=== PATIENT | female | born 1955 | race Hispanic/Latino ===

== ENCOUNTER 2020-01-26 12:31 | Emergency (ER) | payer OTHER ==
[~2020-01-26] VITALS: Ht 154.9 cm; Wt 108.9 kg
[~2020-01-26 12:31] MED LIST: AMARYL4 MG PO; ASPIR 8181 MG PO; GLUCOPHAGE850 MG PO; INVOKANA PO; MISC PO; VICTOZA 3-0.6 MG/0.1 SQ
--- NOTE | 2020-01-26 13:07 | NUR ---
US ETA 45 MINUTES
--- NOTE | 2020-01-26 14:55 | Diagnostic Imaging Report ---
EXAM: Right Upper Quadrant Ultrasound with Doppler INDICATION: Right upper quadrant pain. COMPARISON: The abdomen/pelvis. TECHNIQUE: Transverse and longitudinal images of the right upper abdomen were obtained. Grayscale, color Doppler and spectral waveform analysis of the hepatic vasculature and splenic vein were performed. FINDINGS: Liver: Size: 16.2 cm in the right midclavicular line, normal Appearance: Increased echogenicity, smooth contour. Mass: No focal masses Gallbladder: Stones/Sludge: None Wall: 0.6 cm, thickened. Appearance: No pericholecystic fluid or hydrops. Sonographic Dye's Sign: Positive Bile Ducts: Intrahepatic Ducts: No dilatation Extrahepatic Ducts: Common bile duct measures 0.3 cm, no dilatation Pancreas: Visualized portions of the pancreatic head, neck and proximal body are normal. Right Kidney: Size: 11.1 x 4.6 x 6.0 cm Echogenicity: Normal Parenchymal thickness: Normal Collecting system: No hydronephrosis Stones: None Cyst/Mass: None Vessels: Main Portal Vein: Diameter: 1.1 cm, normal. Normal flow direction. Aorta: Visualized portions are normal Inferior Vena Cava: Visualized portions are normal Free Fluid: No ascites or pleural effusion IMPRESSION: 1. Gallbladder wall thickening without evidence of gallstones or pericholecystic fluid. This consultation of findings can be seen with chronic acalculus cholecystitis. 2. Diffusely echogenic liver which may be due to body habitus and underpenetration rather than hepatic steatosis. Signed by: Stan Gonzalez MD on 01/26/2020 2:52 PM
--- NOTE | 2020-01-26 15:01 | Diagnostic Imaging Report ---
EXAM: CT Abdomen and Pelvis WITHOUT contrast INDICATION: Abdominal pain. COMPARISON: Same day ultrasound. TECHNIQUE: Abdomen and pelvis were scanned utilizing a multidetector helical scanner from the lung base to the pubic symphysis without administration of IV contrast. Absence of intravenous contrast decreases sensitivity for detection of focal lesions and vascular pathology. Coronal and sagittal reformations were obtained. Routine protocol was performed. IV CONTRAST: None ORAL CONTRAST: None COMPLICATIONS: None RADIATION DOSE: Total DLP: 1o09.44 mGy*cm Estimated effective dose: (DLP x 0.015 x size factor) mSv CTDIvol has been reviewed. It is below the limits set by the Radiation Protocol Committee (RPC). Dose modulation, iterative reconstruction, and/or weight based adjustment of the mA/kV was utilized to reduce the radiation dose to as low as reasonably achievable. FINDINGS: LINES and TUBES: None. LOWER THORAX: Unremarkable HEPATOBILIARY: No focal hepatic lesions. No biliary ductal dilation. GALLBLADDER: No radio-opaque stones or sludge. Gallbladder wall thickening described on same day ultrasound is not appreciated by CT. No pericholecystic fluid. SPLEEN: No splenomegaly. PANCREAS: No focal masses or ductal dilatation. ADRENALS: There is a 1.4 x 1.1 cm right adrenal adenoma. Left adrenal gland is normal. KIDNEYS/URETERS: There is bilateral nonspecific perinephric fat stranding. No hydronephrosis. No cystic or solid mass lesions. No stones. GI TRACT: No abnormal distention, wall thickening, or evidence of bowel obstruction. Appendix is normal. PELVIC ORGANS/BLADDER: Unremarkable. LYMPH NODES: No lymphadenopathy. VESSELS: There is a splenic artery aneurysm which measures 1.1 x 1.1 cm. The abdominal aorta and its major abdomen and pelvic branches have normal caliber otherwise. PERITONEUM / RETROPERITONEUM: No free air or fluid. BONES: There are degenerative changes in the spine. SOFT TISSUES: Unremarkable. IMPRESSION: 1. No acute abdominopelvic abnormality identified. 2. Gallbladder wall thickening described on same day ultrasound is not appreciated by CT. 3. Splenic artery aneurysm which measures 1.1 x 1.1 cm. 4. Right adrenal adenoma. Signed by: Stan Gonzalez MD on 01/26/2020 2:58 PM
--- NOTE | 2020-01-26 15:27 | Emergency Department Note ---
History of Present Illnes History of Present Illness Chief Complaint: Abdominal Complaints History of Present Illness This is a 64 year old female abdominal pain right upper quadrent . Onset (how long ago): day(s) (3) Location: right upper Quality: dull Radiation: Denies non-radiation, Denies back, Denies neck, Denies extremity, Denies abdomen, Denies periumbilical, Denies flank, Denies proximal, Denies distal, Denies other Severity: moderate Onset quality: gradual Duration (how long): day(s) (3) Timing of current episode: intermittent Progression: waxing and waning Context: Denies recent illness, Denies recent surgery, Denies recent immobilization, Denies recent travel, Denies trauma/injury, Denies new medications, Denies hx of DVT/PE, Denies non-compliance w/ medications, Denies other Relieving factors: none Exacerbating factors: none Associated symptoms: Denies denies other symptoms, Denies confusion, Denies chest pain, Denies cough, Denies diaphoresis, Denies fever/chills, Denies headaches, Denies loss of appetite, Denies malaise, Denies nausea/vomiting, Denies rash, Denies seizure, Denies shortness of breath, Denies syncope, Denies weakness, Denies other Treatments prior to arrival: none Past Medical/Family History Physician Review I have reviewed the patient's past medical and family history. Any updates have been documented here. Past Medical History Past Medical History: Diabetes Other Surgery: Social History Smoking Cessation: Never Smoker Alcohol Use: None Other Last Tetanus: UTD Review of Systems Review of Systems Constitutional: Reports no symptoms EENTM: Reports no symptoms Cardiovascular: Reports no symptoms Respiratory: Reports no symptoms Gastrointestinal: Reports as per HPI, Reports abdominal pain Genitourinary: Reports no symptoms Musculoskeletal: Reports no symptoms Integumentary: Reports no symptoms Neurological: Reports no symptoms Psychological: Reports no symptoms Endocrine: Reports no symptoms Hematological/Lymphatic: Reports no symptoms Physical Exam Related Data Allergies: Coded Allergies: clindamycin (Verified Allergy, Severe, RASH, 06/19/10) codeine (Verified Allergy, Severe, RASH, 06/19/10) Vital signs reviewed: Yes Physical Exam CONSTITUTIONAL Constitutional: Present well-developed, Present well-nourished HENT HENT: Present normocephalic, Present atraumatic, Present oropharynx clear/moist, Present nose normal HENT L/R: Present left ext ear normal, Present right ext ear normal EYES Eyes: Reports PERRL, Reports conjunctivae normal NECK Neck: Present ROM normal PULMONARY Pulmonary: Present effort normal, Present breath sounds normal CARDIOVASCULAR Cardiovascular: Present regular rhythm, Present heart sounds normal, Present capillary refill normal, Present normal rate GASTROINTESTINAL Abdominal: Present soft, Present bowel sounds normal, Present tender GENITOURINARY Genitourinary: Present exam deferred SKIN Skin: Present warm, Present dry MUSCULOSKELETAL Musculoskeletal: Present ROM normal NEUROLOGICAL Neurological: Present alert, Present oriented x 3, Present no gross motor or sensory deficits PSYCHOLOGICAL Psychological: Present mood/affect normal, Present judgement normal Results Laboratory Lab results reviewed: Yes Imaging Imaging results reviewed: Yes Assessment & Plan Medical Decision Making MDM gall stones, PUD Reassessment Reassessment BETTER Assessment & Plan Final Impression: (1) Abdominal pain, right upper quadrant (2) Gall bladder pain Depart Disposition: HOME, SELF-residential Meds Active Scripts [[Invokana] ] MISC No Conflict Check, 100 MG PO RDAILY Prov:MARJAN CHRISTIANSON MD 05/30/14 Reported Medications Metformin Hcl (GLUCOPHAGE) 850 Mg Tablet, 850 MG PO BID 12/18/13 Aspirin (ASPIR 81) 81 Mg Tablet.dr, 81 MG PO RDAILY 12/18/13 [Invokana] 100 MG TAB No Conflict Check, 100 MG PO RDAILY 12/18/13 Glimepiride (AMARYL) 4 Mg Tablet, 4 MG PO QAM 12/18/13 Liraglutide (VICTOZA 3-FREDDIE) 0.6 Mg/0.1 Ml Pen.injctr, 1.8 MG SQ RDAILY 12/18/13 ZARA CUMMINS MD Jan 26, 2020 15:27
[2020-01-26 15:52] VITALS: BP 113/62
== END 2020-01-26 16:16 | disposition home or self-care (01) ==
LOC: FSED 12:31
DX: R10.11 Right upper quadrant pain (principal); K82.9 Disease of gallbladder, unspecified; E11.65 Type 2 diabetes mellitus with hyperglycemia
CPT/HCPCS: 74176; 76705; 80053; 81003; 85025; 99284

== ENCOUNTER 2020-12-20 12:27 | Emergency (ER) | payer OTHER ==
[~2020-12-20] VITALS: Ht 157.5 cm; Wt 99.8 kg
[2020-12-20] MEDS ORDERED: SODIUM CHLORIDE 0.9% 1000ML 1,000 ML IV STA ×2 (12:59)
[2020-12-20] MEDS ORDERED: ONDANSETRON HCL INJ 2MG/ML 2ML 2 MG/ML VIAL IV NR (13:00)
[2020-12-20] MEDS ORDERED: ONDANSETRON ODT4 MG PO (15:23)
== END 2020-12-20 15:24 | disposition home or self-care (01) ==
LOC: FSED 12:30
DX: E11.65 Type 2 diabetes mellitus with hyperglycemia (principal); E86.0 Dehydration; Z88.1 Allergy status to other antibiotic agents; Z88.5 Allergy status to narcotic agent; Z79.84 Long term (current) use of oral hypoglycemic drugs
CPT/HCPCS: 36415; 71045; 80048; 80076; 81003; 82948; 85025; 96374; 99284; J2405; J7030